=== PATIENT | male | born 1975 | race Caucasian/White ===

== ENCOUNTER 2018-09-25 16:22 | Emergency (ER) | payer OTHER ==
[~2018-09-25] VITALS: Ht 175.3 cm; Wt 72.6 kg
[2018-09-25 16:25] VITALS: BP 156/96
[2018-09-25] MEDS ORDERED: NACL 0.9% 1,000 ML IV ONE (16:45)
[2018-09-25 17:38] LABS: BASOPHILS % (AUTO) 0.3 % (0.0-2.0); EOSINOPHILS # (AUTO) 0.2 K/uL (0-0.4); EOSINOPHILS % (AUTO) 2.4 % (0.0-4.0); HEMATOCRIT 43.2 % (36-52); HEMOGLOBIN 14.3 g/dL (12.0-18.0); LYMPHOCYTES # (AUTO) 1.4 K/uL (2.0-11.5); LYMPHOCYTES % (AUTO) 19.3 % (20.5-51.1); MEAN CORPUSCULAR HEMOGLOBIN 31 pg (27-31); MEAN CORPUSCULAR HGB CONC 33 g/dL (33-37); MEAN CORPUSCULAR VOLUME 92.4 fL (80-94); MONOCYTES # (AUTO) 0.6 K/uL (0.8-1.0); MONOCYTES % (AUTO) 8.8 % (1.7-9.3); NEUTROPHILS # (AUTO) 4.9 K/uL (1.8-7.7); NEUTROPHILS % (AUTO) 69.2 % (42.2-75.2); PLATELET COUNT (AUTO) 259 K/uL (140-450); RED BLOOD CELL COUNT(AUTO) 4.68 MIL/uL (4.20-6.10); RED CELL DISTRIBUTION WIDTH 13.2 % (11.6-13.7); WHITE BLOOD COUNT (AUTO) 7.1 K/uL (4.8-10.8)
[2018-09-25 17:48] LABS: ANION GAP 14.8 (8-16); CHLORIDE 107 mmol/L (98-107); CREATININE 1.1 mg/dL (0.7-1.3); GFR ARICAN-AMERICAN 94 mL/min (>90); GLUCOSE 92 mg/dL (74-106); POTASSIUM 3.8 mmol/L (3.5-5.1); SODIUM SERUM 141 mmol/L (136-145); UREA NITROGEN, BLOOD 12 mg/dL (7-18)
[2018-09-25 17:55] LABS: BARBITURATE, URINE NEG. ng/ml (NEG <=200); BENZODIAZEPINE, URINE NEG. ng/mL (NEG <=200); CANNABINOID, URINE NEG. ng/mL (NEG <=50); COCAINE, URINE NEG. ng/mL (NEG <=300); OPIATE, URINE NEG. ng/mL (NEG <=2000); PHENCYCLIDINE SCREEN,URINE NEG. ng/mL (NEG <=25)
[2018-09-25 17:57] LABS: ALBUMIN 3.2 g/dL (3.4-5.0); ASPARTATE AMINOTRANSFERASE 20 U/L (15-37); TOTAL BILIRUBIN 0.1 mg/dL (0.0-1.0)
[2018-09-25 17:58] LABS: ACETAMINOPHEN < 0.5 ug/ml (10-30); SALICYLATE < 2.8 mg/dL (2.8-20.0)
[2018-09-25 18:15] VITALS: BP 145/98
== END 2018-09-25 18:13 | disposition home or self-care (01) ==
LOC: MED 16:22
DX: F15.10 Other stimulant abuse, uncomplicated (principal); F10.129 Alcohol abuse with intoxication, unspecified
CPT/HCPCS: 36415; 80053; 80305; 81002; 85025; 96360; 99284; G0480; G0482; J7030

== ENCOUNTER 2019-08-05 16:22 | Emergency (ER) | payer OTHER ==
[~2019-08-05] VITALS: Ht 175.3 cm; Wt 68.0 kg
[2019-08-05 16:25] VITALS: BP 117/84
--- NOTE | 2019-08-05 16:40 | NUR ---
PT AMBULATED TO BED 08.
--- NOTE | 2019-08-05 16:40 | NUR ---
C/O L WRIST PAIN X2 MONTHS. PT DENIES INJURY. NO OBVIOUS DEFORMITY NOTED. MILD SWELLING NOTED TO L HAND. +M/S FUNCTION, +2 RADIAL PULSE TO L HAND, <3 SEC CAP REFIL. PT STATES HE HAD A CRUSH INJURY TO THAT SAME WRIST. PT SITTING IN CHAIR AT BEDSIDE.
[2019-08-05] MEDS ORDERED: IBUPROFEN 600 MG TAB PO ONE (17:15)
--- NOTE | 2019-08-05 17:22 | NUR ---
medical chief technician at bedside.
[2019-08-05 19:05] VITALS: BP 111/74
--- NOTE | 2019-08-05 19:07 | NUR ---
Patient discharged with v/s stable. Written and verbal after care instructions given and explained. Patient alert, oriented and verbalized understanding of instructions. Ambulatory with steady gait. All questions addressed prior to discharge. ID band removed. Patient advised to follow up with PMD. Rx of IBU given. Patient educated on indication of medication including possible reaction and side effects. Opportunity to ask questions provided and answered.
== END 2019-08-05 18:36 | disposition home or self-care (01) ==
LOC: MED 16:22
DX: S52.612A Displaced fracture of left ulna styloid process, initial encounter for closed fracture (principal); X58.XXXA Exposure to other specified factors, initial encounter; Y93.89 Activity, other specified; Y92.89 Other specified places as the place of occurrence of the external cause; Y99.8 Other external cause status
CPT/HCPCS: 73110; 99283

== ENCOUNTER 2019-08-07 14:39 | Emergency (ER) | payer OTHER ==
--- NOTE | 2019-08-07 15:16 | NUR ---
pt did not want to see doctor requested copy of x-ray read
== END 2019-08-07 15:16 | disposition left against medical advice (07) ==
LOC: MED 14:39
DX: Z53.21 Procedure and treatment not carried out due to patient leaving prior to being seen by health care provider (principal)

== ENCOUNTER 2022-08-16 10:53 | Emergency (ER) | payer OTHER ==
[~2022-08-16] VITALS: Ht 180.3 cm; Wt 72.6 kg
--- NOTE | 2022-08-16 11:00 | NUR ---
C/O LOW BACK PAIN S/P 2 DAYS. REPORTS LIFITNG BOXES AND BELIEVES HE "TWISTED WRONG". REPORTS RECENT USE OF "SPEED" STATES HE HAS BEEN SOBER X 1 WEEK.
[2022-08-16 12:02] VITALS: BP 151/109
--- NOTE | 2022-08-16 13:15 | NUR ---
DR SHANNON AT BEDSIDE.
[2022-08-16] MEDS ORDERED: CYCLOBENZAPRINE 10 MG TAB PO ONE (13:25)
[2022-08-16] MEDS ORDERED: ACETAMINOPHEN EXTRA STRENGTH 500 MG TAB PO ONE (13:25)
[2022-08-16] MEDS ORDERED: KETOROLAC 15 MG/ML VIAL IM ONE (13:25)
[2022-08-16] MEDS ORDERED: NAPR-1704 PO (13:49)
[2022-08-16] MEDS ORDERED: DICL100G5 TP (13:49)
[2022-08-16] MEDS ORDERED: CYCL-711 PO (13:49)
[2022-08-16] MEDS ORDERED: LID5T TP (13:49)
[2022-08-16] MEDS ORDERED: ACET-10509 PO (13:49)
[2022-08-16] MEDS ORDERED: LIDOCAINE 5% 1 EA PATCH TP ONE (14:07)
[2022-08-16 14:10] VITALS: BP 145/86
[2022-08-16 14:36] LABS: APPEARANCE,URINE CLEAR (CLEAR); BILIRUBIN,URINE NEGATIVE (NEGATIVE); BLOOD, URINE NEGATIVE (NEGATIVE); COLOR,URINE YELLOW (YELLOW); LEUKOCYTE ESTERASE ,URINE NEGATIVE (NEGATIVE); NITRITE, URINE NEGATIVE (NEGATIVE); PH,URINE 6.5 (5.0-9.0); UGLUCOSE NEGATIVE (NEGATIVE)
[2022-08-16 14:51] LABS: BARBITURATE, URINE NEGATIVE ng/ml (NEG <=200); BENZODIAZEPINE, URINE NEGATIVE ng/mL (NEG <=200); CANNABINOID, URINE NEGATIVE ng/mL (NEG <=50); COCAINE, URINE NEGATIVE ng/mL (NEG <=300); OPIATE, URINE NEGATIVE ng/mL (NEG <=2000); PHENCYCLIDINE SCREEN,URINE NEGATIVE ng/mL (NEG <=25)
[2022-08-17] MEDS ORDERED: LIDOCAINE 5% 1 EA PATCH TP SCH (09:00)
== END 2022-08-16 14:10 | disposition home or self-care (01) ==
LOC: MED 10:53
DX: S39.012A Strain of muscle, fascia and tendon of lower back, initial encounter (principal); F17.210 Nicotine dependence, cigarettes, uncomplicated; F15.10 Other stimulant abuse, uncomplicated; F11.90 Opioid use, unspecified, uncomplicated; X58.XXXA Exposure to other specified factors, initial encounter; Y93.89 Activity, other specified; Y92.89 Other specified places as the place of occurrence of the external cause; Y99.8 Other external cause status
CPT/HCPCS: 80305; 81003; 96372; 99284; J1885

== ENCOUNTER 2024-05-11 16:35 | Emergency (ER) | payer OTHER ==
[~2024-05-11] VITALS: Ht 180.3 cm; Wt 75.9 kg
[~2024-05-11 16:35] MED LIST: ACET-10509 PO; CYCL-711 PO; DICL100G32 TP; LID5T TP; NAPR-1704 PO
[2024-05-11 16:47] VITALS: BP 151/92; PULSE 71; RESP 19; TEMP 97.7; O2SAT 98
[2024-05-11] MEDS ORDERED: NAPR-337 PO (18:52)
== END 2024-05-11 18:57 | disposition home or self-care (01) ==
LOC: MED 16:35
DX: S23.8XXA Sprain of other specified parts of thorax, initial encounter (principal); M25.511 Pain in right shoulder; Z79.1 Long term (current) use of non-steroidal anti-inflammatories (NSAID); Z79.899 Other long term (current) drug therapy; X58.XXXA Exposure to other specified factors, initial encounter; Y93.89 Activity, other specified; Y92.89 Other specified places as the place of occurrence of the external cause; Y99.8 Other external cause status
CPT/HCPCS: 71045; 93005; 99283